=== PATIENT | female | born 1980 | race Caucasian/White ===

== ENCOUNTER 2017-08-28 16:30 | Observation (INO) | payer MEDICAID, OTHER ==
[~2017-08-28 16:30] MED LIST: PREN1TAB52 PO
== END 2017-08-28 18:00 | disposition home or self-care (01) ==
LOC: 4S 16:30
PROVIDERS: ADMIT Obstetrics & Gynecology; ATTEND Obstetrics & Gynecology
DX: O09.523 Supervision of elderly multigravida, third trimester (principal); Z3A.35 35 weeks gestation of pregnancy
CPT/HCPCS: 59025; G0378

== ENCOUNTER 2017-08-31 10:01 | Observation (INO) | payer OTHER ==
[~2017-08-31] VITALS: Ht 154.9 cm; Wt 57.6 kg
[2017-08-31 11:17] VITALS: BP 106/68
== END 2017-08-31 10:50 | disposition home or self-care (01) ==
LOC: 4S 10:01
PROVIDERS: ADMIT Obstetrics & Gynecology; ATTEND Obstetrics & Gynecology
DX: O26.893 Other specified pregnancy related conditions, third trimester (principal); R10.30 Lower abdominal pain, unspecified; O09.523 Supervision of elderly multigravida, third trimester; Z3A.35 35 weeks gestation of pregnancy
CPT/HCPCS: 59025

== ENCOUNTER 2017-09-04 10:00 | Observation (INO) | payer OTHER ==
[2017-09-04 10:21] VITALS: BP 107/59
== END 2017-09-04 11:00 | disposition home or self-care (01) ==
LOC: 4S 10:00
PROVIDERS: ADMIT Obstetrics & Gynecology; ATTEND Obstetrics & Gynecology
DX: O09.523 Supervision of elderly multigravida, third trimester (principal); Z3A.36 36 weeks gestation of pregnancy
CPT/HCPCS: 59025; G0378

== ENCOUNTER 2017-09-07 09:20 | Observation (INO) | payer OTHER ==
[~2017-09-07] VITALS: Ht 154.9 cm; Wt 57.6 kg
[2017-09-07 09:35] VITALS: BP 117/66
[2017-09-07 14:47] LABS: APPEARANCE,URINE CLOUDY (CLEAR); BILIRUBIN,URINE NEGATIVE (NEGATIVE); GLUCOSE, URINE (UA) NEGATIVE (NEGATIVE); KETONES,URINE NEGATIVE (NEGATIVE); LEUKOCYTE ESTERASE ,URINE LARGE (NEGATIVE); NITRATE,URINE NEGATIVE (NEGATIVE); OCCULT BLOOD,URINE NEGATIVE (NEGATIVE); PROTEIN,URINE NEGATIVE (NEGATIVE); UROBILINOGEN,URINE 0.2 mg/dL (<=1.0)
[2017-09-07 15:08] LABS: BACTERIA,URINE Few /HPF (None Seen); RBC,URINE 0-2 /HPF (0-2); RENAL EPITHELIAL CELLS,URINE Few /LPF (None Seen); SQUAMOUS EPITHELIAL CELL,UR Moderate /LPF (None Seen)
== END 2017-09-07 10:40 | disposition home or self-care (01) ==
LOC: 4S 09:20
PROVIDERS: ADMIT Obstetrics & Gynecology; ATTEND Obstetrics & Gynecology
DX: O09.523 Supervision of elderly multigravida, third trimester (principal); Z3A.36 36 weeks gestation of pregnancy
CPT/HCPCS: 59025; 81001; 87086; G0378

== ENCOUNTER 2017-09-11 10:10 | Observation (INO) | payer OTHER | END 2017-09-11 11:00 | disposition home or self-care (01) | LOC: 4S 10:10 | PROVIDERS: ADMIT Obstetrics & Gynecology; ATTEND Obstetrics & Gynecology | DX: O09.523 Supervision of elderly multigravida, third trimester (principal); Z3A.37 37 weeks gestation of pregnancy | CPT/HCPCS: 59025; G0378 ==

== ENCOUNTER 2017-09-14 15:51 | Observation (INO) | payer OTHER ==
[2017-09-14] MEDS ORDERED: FERR-82 PO (16:12)
[2017-09-14 16:14] VITALS: BP 109/73
== END 2017-09-14 16:40 | disposition home or self-care (01) ==
LOC: 4S 15:51
PROVIDERS: ADMIT Obstetrics & Gynecology; ATTEND Obstetrics & Gynecology
DX: O09.523 Supervision of elderly multigravida, third trimester (principal); Z3A.37 37 weeks gestation of pregnancy
CPT/HCPCS: 59025

== ENCOUNTER 2017-09-18 15:05 | Observation (INO) | payer OTHER ==
[~2017-09-18 15:05] MED LIST changes: +FERR-82 PO
[2017-09-18 15:53] VITALS: BP 110/68
== END 2017-09-18 16:45 | disposition home or self-care (01) ==
LOC: 4S 15:05
PROVIDERS: ADMIT Obstetrics & Gynecology; ATTEND Obstetrics & Gynecology
DX: O09.523 Supervision of elderly multigravida, third trimester (principal); Z3A.38 38 weeks gestation of pregnancy
CPT/HCPCS: 59025; G0378

== ENCOUNTER 2017-09-21 10:00 | Observation (INO) | payer OTHER ==
[~2017-09-21] VITALS: Ht 154.9 cm; Wt 58.5 kg
[2017-09-21 10:33] VITALS: BP 113/74
[2017-09-24] MEDS ORDERED: IBUP-2070 PO (13:39)
[2017-09-24] MEDS ORDERED: FERR-89 PO (13:40)
== END 2017-09-21 11:10 | disposition home or self-care (01) ==
LOC: 4S 10:00
PROVIDERS: ADMIT Obstetrics & Gynecology; ATTEND Obstetrics & Gynecology
DX: O26.893 Other specified pregnancy related conditions, third trimester (principal); R10.30 Lower abdominal pain, unspecified; O62.9 Abnormality of forces of labor, unspecified; O09.523 Supervision of elderly multigravida, third trimester; Z3A.38 38 weeks gestation of pregnancy
CPT/HCPCS: 59025; G0378